=== PATIENT | female | born 1960 | race Caucasian/White ===

== ENCOUNTER 2022-08-05 12:29 | Outpatient (CLI) | payer BC, SELFPAY | END 2022-08-05 12:30 | disposition home or self-care (01) | LOC: LKVREF 08-09 14:11 | PROVIDERS: Visit Provider Nurse Practitioner Family | DX: R30.0 Dysuria (principal); N39.0 Urinary tract infection, site not specified | CPT/HCPCS: 87086 ==

== ENCOUNTER 2022-11-22 12:49 | Outpatient (CLI) | payer BC, SELFPAY | END 2022-11-22 12:50 | disposition home or self-care (01) | LOC: NFLDREF 11-24 09:21 | PROVIDERS: PCP Emergency Medicine; Visit Provider Emergency Medicine | DX: R30.0 Dysuria (principal); F43.21 Adjustment disorder with depressed mood; Z12.31 Encounter for screening mammogram for malignant neoplasm of breast; Z63.4 Disappearance and death of family member; Z12.11 Encounter for screening for malignant neoplasm of colon; Z13.1 Encounter for screening for diabetes mellitus; Z13.6 Encounter for screening for cardiovascular disorders | CPT/HCPCS: 87086; 87186 ==

== ENCOUNTER 2022-11-23 08:27 | Outpatient (CLI) | payer BC, SELFPAY | END 2022-11-23 08:28 | disposition home or self-care (01) | LOC: NFLDREF 11-26 14:33 | PROVIDERS: PCP Emergency Medicine; Referring Provider Emergency Medicine; Visit Provider Emergency Medicine | DX: Z00.00 Encounter for general adult medical examination without abnormal findings (principal); Z13.1 Encounter for screening for diabetes mellitus; Z13.6 Encounter for screening for cardiovascular disorders | CPT/HCPCS: 80053; 80061 ==

== ENCOUNTER 2023-01-15 12:42 | Outpatient (CLI) | payer BC, SELFPAY | END 2023-01-15 12:43 | disposition home or self-care (01) | PROVIDERS: PCP Emergency Medicine; Referring Provider Emergency Medicine; Visit Provider Physician Assistant | DX: R35.0 Frequency of micturition (principal); R30.0 Dysuria; R39.9 Unspecified symptoms and signs involving the genitourinary system | CPT/HCPCS: 87086 ==